=== PATIENT | female | born 1995 | race Caucasian/White ===

== ENCOUNTER 2021-01-13 19:56 | Emergency (ER) | payer OTHER ==
[~2021-01-13] VITALS: Ht 162.5 cm; Wt 98.9 kg
[~2021-01-13 19:56] MED LIST: BACTRIM DS 8001 TA1 PO; MOTRIN400 MG PO
[2021-01-13 20:13] VITALS: BP 124/74
[2021-01-13] MEDS ORDERED: BENZONATATE100 M1 PO (23:29)
== END 2021-01-13 23:38 | disposition home or self-care (01) ==
LOC: ED 19:56
DX: J40 Bronchitis, not specified as acute or chronic (principal); Z20.822 Contact with and (suspected) exposure to COVID-19

== ENCOUNTER → 2021-03-06 | Outpatient (CLI) | payer OTHER ==
[~2021-03-06] MED LIST changes: +BENZONATATE100 M1 PO
== END | disposition home or self-care (01) ==
LOC: US 07:15
PROVIDERS: ATTEND Nurse Practitioner Women's Health
DX: Z34.01 Encounter for supervision of normal first pregnancy, first trimester (principal); Z3A.01 Less than 8 weeks gestation of pregnancy